=== PATIENT | male | born 1985 | race Caucasian/White ===

== ENCOUNTER → 2016-11-29 | Outpatient (CLI) | payer OTHER | LOC: FIMAGING 06:54 | PROVIDERS: ATTEND Family Medicine | DX: M51.34 Other intervertebral disc degeneration, thoracic region (principal); M51.14 Intervertebral disc disorders with radiculopathy, thoracic region ==

== ENCOUNTER 2016-12-14 08:27 | Emergency (ER) | payer OTHER ==
[2016-12-14 08:31] VITALS: RESP 16
[2016-12-14 08:46] LABS: COLOR YELLOW; LEUKOCYTE ESTERASE,URINE NEGATIVE (NEGATIVE); NITRITE,URINE NEGATIVE (NEGATIVE)
[2016-12-14] MEDS ORDERED: NS 1,000 ML IV ONE (08:50)
[2016-12-14] MEDS ORDERED: KETOROLAC 30 MG/1 ML SDV IVP ONE (08:50)
--- NOTE | 2016-12-14 08:50 | EDPHY ---
HPI/HX/ROS/PE/MDM Narrative: CHIEF COMPLAINT: Left flank pain, hematuria. HPI: The patient is a 31 year old male with a history of kidney stones who presents with left flank pain and hematuria for the past seven hours. The pain is constant and severe. He has had associated vomiting. He denies fever, trauma. His last kidney stone was last summer and he reports that it was never taken out or passed. REVIEW OF SYSTEMS: Aside from elements discussed in the HPI, a comprehensive 10-point review of systems was reviewed and is negative. PMH: Kidney stones. SOCIAL HISTORY: Lives in [place]. PHYSICAL EXAM: General: Patient is alert, in no acute distress. ENT: Eyes are normal to inspection. ENT inspection normal. Neck: Normal inspection. Full range of motion. Respiratory: No respiratory distress. Breath sounds normal bilaterally. Cardiovascular: Regular rate and rhythm. Strong peripheral pulses. Abdomen: The abdomen is nontender to palpation. There are no peritoneal signs. There are normal bowel sounds. Back: Normal to inspection. No tenderness to palpation. Skin: Normal color. No rash. Warm and dry. Extremities: Normal appearance. Full range of motion. Neuro: Oriented x3. Normal motor function. Normal sensory function. Portions of this note were transcribed by an ED scribe. I personally performed the history, physical exam, and medical decision making; and confirm the accuracy of the information in the transcribed note. ED Course: Urinalysis ordered. An IV was established and labs ordered. Abdomen/pelvis CT ordered. 1L IV saline administered for hydration along with 30mg IV Toradol for pain. Urine shows 50-182 RBCs and 10-15 WBCs. 0935: CT results conveyed to me by Dr. Diaz and show 3mm stone at the UVJ. Study: CT of the abdomen/pelvis. Indication: Pain, hematuria. Results: Mild to moderate left-sided hydronephrosis secondary to a small 3 x 2 x 3 mm left UVJ calculus. The study was read by the radiologist, Dr. Diaz. I viewed the images myself on the PACS system. - Data Points Laboratory Results: Laboratory Results 12/14/16 08:50 12/14/16 08:50 12/14/16 12/14/16 12/14/16 08:50 08:50 08:35 WBC 11.44 10^3/uL H 10^3/uL (3.80-9.50) RBC 5.48 10^6/uL 10^6/uL (4.40-6.38) Hgb 16.9 g/dL g/dL (13.7-17.5) Hct 48.3 % % (40.0-51.0) MCV 88.1 fL fL (81.5-99.8) MCH 30.8 pg pg (27.9-34.1) MCHC 35.0 g/dL g/dL (32.4-36.7) RDW 12.2 % % (11.5-15.2) Plt Count 257 10^3/uL 10^3/uL (150-400) MPV 9.4 fL fL (8.7-11.7) Neut % (Auto) 85.0 % H % (39.3-74.2) Lymph % (Auto) 9.4 % L % (15.0-45.0) [place] % (Auto) 4.5 % % (4.5-13.0) Eos % (Auto) 0.6 % % (0.6-7.6) Baso % (Auto) 0.3 % % (0.3-1.7) Nucleat RBC Rel Count 0.0 % % (0.0-0.2) Absolute Neuts (auto) 9.73 10^3/uL H 10^3/uL (1.70-6.50) Absolute Lymphs (auto) 1.07 10^3/uL 10^3/uL (1.00-3.00) Absolute Monos (auto) 0.52 10^3/uL 10^3/uL (0.30-0.80) Absolute Eos (auto) 0.07 10^3/uL 10^3/uL (0.03-0.40) Absolute Basos (auto) 0.03 10^3/uL 10^3/uL (0.02-0.10) Absolute Nucleated RBC 0.00 10^3/uL 10^3/uL (0-0.01) Immature Gran % 0.2 % % (0.0-1.1) Immature Gran # 0.02 10^3/uL 10^3/uL (0.00-0.10) Sodium 141 mEq/L mEq/L (134-144) Potassium 4.4 mEq/L mEq/L (3.5-5.2) Chloride 108 mEq/L mEq/L (97-110) Carbon Dioxide 24 mEq/l mEq/l (22-31) Anion Gap 9 mEq/L mEq/L (8-16) BUN 15 mg/dL mg/dL (7-23) Creatinine 1.0 mg/dL mg/dL (0.7-1.3) Estimated GFR > 60 Glucose 120 mg/dL H mg/dL (70-100) Calcium 9.8 mg/dL mg/dL (8.5-10.4) Urine Color YELLOW Urine Appearance HAZY Urine pH 6.0 (5.0-7.5) Ur Specific [place] 1.017 (1.002-1.030) Urine Protein 1+ H (NEGATIVE) Urine Ketones NEGATIVE (NEGATIVE) Urine Blood 3+ H (NEGATIVE) Urine Nitrate NEGATIVE (NEGATIVE) Urine Bilirubin NEGATIVE (NEGATIVE) Urine Urobilinogen NEGATIVE EU EU (0.2-1.0) Ur Leukocyte Esterase NEGATIVE (NEGATIVE) Urine RBC 50-182 /hpf H /hpf (0-3) Urine WBC 10-15 /hpf H /hpf (0-3) Ur Epithelial Cells NONE SEEN /lpf /lpf (NONE-1+) Urine Bacteria 1+ /hpf H /hpf (NONE SEEN) Urine Mucus TRACE /lpf /lpf (NONE-1+) Ur Culture Indicated? INDICATED H (NI) Urine Glucose NEGATIVE (NEGATIVE) Medications Given: Discontinued Medications Sodium Chloride (Ns) 1,000 mls @ 0 mls/hr IV ONCE ONE PRN Reason: Wide Open Stop: 12/14/16 08:51 Last Admin: 12/14/16 08:55 Dose: 1,000 mls Ketorolac Tromethamine (Toradol) 30 mg IVP EDNOW ONE Stop: 12/14/16 08:51 Last Admin: 12/14/16 09:00 Dose: 30 mg Ondansetron HCl (Zofran) 4 mg IVP EDNOW ONE Stop: 12/14/16 09:00 Last Admin: 12/14/16 09:00 Dose: 4 mg General Time Seen by Provider: 12/14/16 08:45 Initial Vital Signs: Initial Vital Signs Temperature (C) 36.6 C 12/14/16 08:28 Heart Rate 94 12/14/16 08:28 Respiratory Rate 16 12/14/16 08:28 Blood Pressure 128/96 H 12/14/16 08:28 O2 Sat (%) 95 12/14/16 08:28 O2 Delivery Mode Room Air Allergies/Adverse Reactions: diazepam [From Valium] Allergy (Intermediate, Verified 12/14/16 08:31) Makes me crazy Home Medications: Medication Instructions Recorded GABAPENTIN 400 mg PO 12/14/16 Departure - Departure Disposition: Home, Routine, Self-Care Clinical Impression: Kidney stone Condition: Good Instructions: Kidney Stones (ED) Additional Instructions: Follow up with Dr. Larose this week for reevaluation. Return to the Emergency Department for any serious worsening of condition. Referrals: Kallie Alvarado MD [Primary Care Provider] - As per Instructions Flynn Larose MD [Medical Doctor] - As per Instructions Report Scribed for: Alonzo Murphy Report Scribed by: Carlos Araujo Date of Report: 12/14/16 Time of Report: 08:50
[2016-12-14 08:53] LABS: BACTERIA 1+ /hpf (NONE SEEN); MUCUS TRACE /lpf (NONE-1+); RBC,URINE 50-182 /hpf (0-3)
[2016-12-14 08:58] LABS: % IMMATURE GRANULYOCYTES 0.2 % (0.0-1.1); ABSOLUTE IMMATURE GRANULOCYTES 0.02 10^3/uL (0.00-0.10); ADD DIFF? NO; ADD MORPH? NO; ADD SCAN? NO; ATYPICAL LYMPHOCYTE FLAG 10 (0-99); FRAGMENT RBC FLAG 0 (0-99); HEMATOCRIT 48.3 % (40.0-51.0); HEMOGLOBIN 16.9 g/dL (13.7-17.5); LEFT SHIFT FLG 0 (0-99); LIPEMIA HEMOLYSIS FLAG 90 (0-99); MEAN CELL HEMOGLOBIN 30.8 pg (27.9-34.1); MEAN CELL VOLUME 88.1 fL (81.5-99.8); MEAN PLATELET VOLUME 9.4 fL (8.7-11.7); PLATELET CLUMPS FLAG 0 (0-99); PLATELET COUNT 257 10^3/uL (150-400); RED BLOOD CELL COUNT 5.48 10^6/uL (4.40-6.38); RED CELL DISTRIBUTION WIDTH 12.2 % (11.5-15.2)
[2016-12-14] MEDS ORDERED: ONDANSETRON 4 MG/2 ML VIAL IVP ONE (08:59)
[2016-12-14 09:21] LABS: ANION GAP 9 mEq/L (8-16); CALCIUM 9.8 mg/dL (8.5-10.4); CARBON DIOXIDE 24 mEq/l (22-31); CHLORIDE 108 mEq/L (97-110); GLOMERULAR FILTRATION RATE > 60; GLUCOSE 120 mg/dL (70-100); POTASSIUM 4.4 mEq/L (3.5-5.2); SODIUM 141 mEq/L (134-144)
[2016-12-14] MEDS ORDERED: AZITHROMYCIN IV 500 MG in D5W 250 ML IV ONE (09:41)
[2016-12-14] MEDS ORDERED: predniSONE 20 MG TAB PO ONE (09:43)
[2016-12-14 10:26] VITALS: BP 120/67; PULSE 73; TEMP 98.8; O2SAT 93
== END 2016-12-14 10:25 | disposition home or self-care (01) ==
DX: N20.0 Calculus of kidney (principal)
CPT/HCPCS: 96374; J0456; J1885; J2405

== ENCOUNTER → 2017-06-01 | Outpatient (CLI) | payer OTHER | LOC: BMCIMAGING 14:52 | PROVIDERS: ATTEND Family Medicine | DX: M47.894 Other spondylosis, thoracic region (principal) ==

== ENCOUNTER 2017-06-11 14:36 | Emergency (ER) | payer OTHER ==
[2017-06-11 14:46] VITALS: TEMP 98.4
[2017-06-11] MEDS ORDERED: HYDROmorphONE/DILAUDID 1 MG/ML INJ IVP ONE ×2 (15:59→18:29)
[2017-06-11] MEDS ORDERED: NS 1,000 ML IV ONE (15:59)
[2017-06-11] MEDS ORDERED: DEXAMETHASONE 10 MG/ML VIAL ONE (16:01)
--- NOTE | 2017-06-11 16:03 | EDPHY ---
H & P Stated Complaint: Upper back pain, L arm tingling Time Seen by Provider: 06/11/17 15:44 HPI/ROS: CHIEF COMPLAINT: Back pain and arm paresthesias HISTORY OF PRESENT ILLNESS: The patient is a 32-year-old man comes to the emergency department complaining of pain between the shoulder blades as well as paresthesias in his left arm. He states that he has had the paresthesias in his arm for about 8 month's and was seen by a neurologist Dr. Ortiz in [place] and diagnosed with a brachial plexopathy by nerve conduction studies. He was 1st placed on a fentanyl patch which he did not tolerate and then was placed on Butrans patch which he did not refill because he does not want to be on narcotics. His symptoms seem to stabilize but has persistent pain and paresthesias in his left arm. His states that the numbness seems to be over a greater surface area than it had been initially and is now including his arm circumferentially and also his left sub axillary area . 1 month ago he was lifting up his 150 lb dog when he felt a pop in his thoracic spine and had significant pain. It seemed to resolve over a few weeks. Then 2 weeks ago he was helping his sister move when he had significant pain in the thoracic spine again. He went to the urgent care and was started on a Medrol Dosepak and OxyContin. His pain improved but returned when the steroids were gone. He saw his primary Dr. Davis who gave him another Medrol Dosepak and this time it did not work. He is here today because he is frustrated that there is not an answer and that the medication is no longer working. He states that he has some slight weakness in his left arm because he is no longer able to unscrew a oil filter. He traditionally had been able to do this. REVIEW OF SYSTEMS: Constitutional: denies: chills, fever, recent illness, recent injury EENTM: denies: blurred vision, double vision, nose congestion Respiratory: denies: cough, shortness of breath Cardiac: denies: chest pain, irregular heart rate, lightheadedness, palpitations Gastrointestinal/Abdominal: denies: abdominal pain, diarrhea, nausea, vomiting, blood streaked stools Genitourinary: denies: dysuria, frequency, hematuria, pain Musculoskeletal: See HPI Skin: denies: lesions, rash, jaundice, bruising Neurological: denies: headache, numbness, paresthesia, tingling, dizziness, weakness Hematologic/Lymphatic: denies: blood clots, easy bleeding, easy bruising Immunologic/allergic: denies: HIV/AIDS, transplant EXAM: GENERAL: Well-appearing, well-nourished and in no acute distress. HEAD: Atraumatic, normocephalic. EYES: Pupils equal round and reactive to light, extraocular movements intact, sclera anicteric, conjunctiva are normal. ENT: TMs normal, nares patent, oropharynx clear without exudates. Moist mucous membranes. NECK: Normal range of motion, supple without lymphadenopathy or JVD. LUNGS: Breath sounds clear to auscultation bilaterally and equal. No wheezes rales or rhonchi. HEART: Regular rate and rhythm without murmurs, rubs or gallops. ABDOMEN: Soft, nontender, normoactive bowel sounds. No guarding, no rebound. No masses appreciated. BACK: Pain and tenderness over T4/5. No swelling. No rash. No deformity. EXTREMITIES: Normal strength when tested and Normal range of motion, no pitting or edema. No clubbing or cyanosis. NEUROLOGICAL: Cranial nerves II through XII grossly intact. Normal speech, normal gait. 5/5 strength, normal movement in all extremities, normal sensation to light touch, normal reflexes PSYCH: Normal mood, normal affect. SKIN: Warm, dry, normal turgor, no visible rashes or lesions. Source: Patient Exam Limitations: No limitations - Personal History Current Tetanus/Diphtheria Vaccine: Yes Current Tetanus Diphtheria and Acellular Pertussis (TDAP): Yes - Medical/Surgical History Hx Asthma: No Hx Chronic Respiratory Disease: No Hx Diabetes: No Hx Cardiac Disease: No Hx Renal Disease: Yes Hx Cirrhosis: No Hx Alcoholism: No Hx HIV/AIDS: No Hx Splenectomy or Spleen Trauma: No Other PMH: kidney stones - Family History Significant Family History: No pertinent family hx - Social History Smoking Status: Never smoked Alcohol Use: Sober Drug Use: None Constitutional: Initial Vital Signs Temperature (C) 36.9 C 06/11/17 14:42 Heart Rate 93 06/11/17 14:42 Respiratory Rate 18 06/11/17 14:42 Blood Pressure 134/89 H 06/11/17 14:42 O2 Sat (%) 94 06/11/17 14:42 O2 Delivery Mode Room Air Allergies/Adverse Reactions: diazepam [From Valium] Allergy (Intermediate, Verified 12/14/16 08:31) Makes me crazy Home Medications: Medication Instructions Recorded oxyCODONE/APAP 5/325 [Percocet 1 - 2 tab PO Q4H PRN #10 tab 06/11/17 5/325 (*)] predniSONE 60 mg PO DAILY #15 tab 06/11/17 Medical Decision Making - Diagnostics Imaging Results: Imaging Impressions Cervical Spine MRI 06/11/17 15:58 Impression: 1. No acute findings in the cervical spine. 2. 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 Thoracic Spine MRI 06/11/17 15:58 Impression: 1. Mild compression fracture of the superior endplate of T7, new since November 29, 2016, without STIR hyperintensity, suggesting this is subacute/old. 2. Decreased conspicuity of a previously noted tiny disk protrusion at T8-T9. 3. Additional findings, as above. Findings discussed with Ren Solis M.D., on June 11, 2017 at 1844. Orbit X-Ray 06/11/17 16:32 Impression: No radiopaque foreign object identified in the orbits. E:NW/amm ED Course/Re-evaluation: The patient reported to the camera technician that he got a piece of metal in his eye 7 months ago. He thinks he got some dirt in his eye about a week ago but has not had any symptoms since. They would like to obtain a x-ray of his orbit to rule out metal foreign body prior to MRI. 6:55 p.m. we discussed the MRI results. The we discussed the old T7 fracture. The this may explain some of his thoracic bony pain. No sign of spinal cord injury or radiculopathy. The patient has been diagnosed with a brachial plexopathy followed by Neurology. He is requesting another dose of steroids and pain medication for this. I suggested he follow up with his neurologist. He understands and agrees with this plan. I will give him a short course of pain medication and tell him follow up with his neurologist. Differential Diagnosis: Partial list of the Differential diagnosis considered include but were not limited to; fracture, spinal cord injury, diskitis, radiculopathy, brachial plexopathy and although unlikely based on the history and physical exam, I also considered infection, cancer. I discussed these differential diagnoses and the plan with the patient as well as the usual and expected course. The patient understands that the diagnosis is provisional and that in medicine we are not always correct and that further workup is often warranted. Usual and customary warnings were given. All of the patient's questions were answered. The patient was instructed to return to the emergency department should the symptoms at all worsen or return, otherwise to followup with the physician as we discussed. - Data Points Medications Given: Discontinued Medications Dexamethasone (Decadron Injection) 10 mg IVP EDNOW ONE Stop: 06/11/17 16:12 Last Admin: 06/11/17 16:12 Dose: 10 mg Hydromorphone HCl (Dilaudid) 1 mg IVP EDNOW ONE Stop: 06/11/17 16:00 Last Admin: 06/11/17 16:09 Dose: 1 mg Hydromorphone HCl (Dilaudid) 1 mg IVP EDNOW ONE Stop: 06/11/17 18:30 Last Admin: 06/11/17 18:32 Dose: 1 mg Sodium Chloride (Ns) 1,000 mls @ 0 mls/hr IV EDNOW ONE; Wide Open PRN Reason: Protocol Stop: 06/11/17 16:00 Last Admin: 06/11/17 16:09 Dose: 1,000 mls Departure - Departure Disposition: Home, Routine, Self-Care Clinical Impression: Thoracic back pain Qualifiers: Chronicity: acute Back pain laterality: midline Qualified Code(s): M54.6 - Pain in thoracic spine Condition: Fair Instructions: Back Pain (ED) Referrals: Mey Weston MD [Primary Care Provider] - As per Instructions Prescriptions: oxyCODONE/APAP 5/325 [Percocet 5/325 (*)] 1 - 2 tab PO Q4H PRN #10 tab PRN Reason: Pain, Severe predniSONE 60 mg PO DAILY #15 tab
[2017-06-11] MEDS ORDERED: DEXAMETHASONE 10 MG/ML VIAL IVP ONE (16:11)
[2017-06-11 19:27] VITALS: BP 129/83; PULSE 80; RESP 16; O2SAT 95
== END 2017-06-11 19:29 | disposition home or self-care (01) ==
DX: M54.6 Pain in thoracic spine (principal)
CPT/HCPCS: 96374; J1100; J1170

== ENCOUNTER 2017-06-13 12:29 | Emergency (ER) | payer OTHER ==
[2017-06-13 12:33] VITALS: RESP 16; TEMP 98.8
--- NOTE | 2017-06-13 13:43 | EDPHY ---
H & P Stated Complaint: BACK PAIN, UNSURE HOW TO FOLLOW UP Time Seen by Provider: 06/13/17 12:50 HPI/ROS: CHIEF COMPLAINT: Midback pain HISTORY OF PRESENT ILLNESS: This is a generally healthy 32-year-old male who presents with ongoing midback pain, present possibly for the past few months. He has also had left arm paresthesias for the last 6-8 months. He was seen by a neurologist, Dr. Ortiz in [place], and diagnosed with brachial plexopathy by nerve conduction studies. He tried a fentanyl patch, a Butrans patch--both of which she discontinued because of side effects and desire to not be on narcotics. About a month ago he was lifting heavy dog and noticed some mid back pain at that time. He thinks there might have been a pop in his back also. This seemed to improve over a few weeks but then returned after he did some lifting again. He was seen at urgent care and treated with a Medrol Dosepak in OxyContin. Once the steroids were completed his pain returned. He then saw his primary care physician who treated him with a 2nd Medrol Dosepak which was not effective. He was seen in the emergency department on June 11. He had an MRI scan of the cervical and thoracic spine performed. There is a subacute/old T7 compression fracture noted. No spinal cord pathology or significant nerve root pathology. He does have degenerative disease. He is here today, frustrated because he is not certain how to proceed at this point in time. He was given a small amount of oxycodone on the 2nd but has taken all of these. They do help but he does not want to be on opiates persistently. He is also on prednisone and continues with this medication. His left arm numbness is essentially unchanged. He denies weakness. He has not had erectile dysfunction or bowel or bladder difficulties. REVIEW OF SYSTEMS: A ten point review of systems was performed and is negative with the exception of the items mentioned in the HPI. 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 He does not use tobacco or alcohol products. He is accompanied by his mother and his today. General Appearance: Alert. Vital signs reviewed. Blood pressure 143/87. Eyes: Pupils equal and round, no conjunctival injection, no discharge. Anicteric. ENT, Mouth: Mucous membranes are moist, no oropharyngeal erythema or edema Neck: Nontender over the cervical spine in the midline. Respiratory: Lungs are clear to auscultation; no wheezes, rales, or rhonchi. Cardiovascular: Regular rate and rhythm; no murmur, rub, or gallop. Gastrointestinal: Abdomen is soft and nontender, no masses or organomegaly, bowel sounds normal. Skin: Warm and dry, no rashes on exposed skin, normal color. Back: Tender but over the mid thoracic spine in the midline. No palpable deformity. No lumbar spine tenderness. No palpable muscle spasm. Extremities: No lower extremity edema, no calf tenderness or swelling. Neurological: Alert and oriented. Moving all four extremities easily and equally. Strength is 5 over 5 bilaterally with testing of all major motor groups. Sensation is intact to light touch with the exception of decreasing patient to light touch over the left lateral upper extremity. Deep tendon reflexes are 2+ in the biceps and knees bilaterally. Gait is normal. Psychiatric: Normal affect. - Personal History Current Tetanus Diphtheria and Acellular Pertussis (TDAP): Yes Tetanus Vaccine Date: < 10 YEARS - Medical/Surgical History Hx Asthma: No Hx Chronic Respiratory Disease: No Hx Diabetes: No Hx Cardiac Disease: No Hx Renal Disease: Yes Hx Cirrhosis: No Hx Alcoholism: No Hx HIV/AIDS: No Hx Splenectomy or Spleen Trauma: No Other PMH: kidney stones, FX T7 - Social History Smoking Status: Never smoked Constitutional: Initial Vital Signs Temperature (C) 37.1 C 06/13/17 12:30 Heart Rate 88 06/13/17 12:30 Respiratory Rate 16 06/13/17 12:30 Blood Pressure 143/87 H 06/13/17 12:30 O2 Sat (%) 96 06/13/17 12:30 O2 Delivery Mode Room Air Allergies/Adverse Reactions: diazepam [From Valium] Allergy (Intermediate, Verified 06/13/17 12:34) Makes me crazy Home Medications: Medication Instructions Recorded predniSONE 60 mg PO DAILY #15 tab 06/11/17 Lidocaine 5% [Lidoderm 5% Patch 1 ea TD DAILY #10 patch 06/13/17 (*)] oxyCODONE/APAP 5/325 [Percocet 1 - 2 tab PO Q4H PRN #10 tab 06/13/17 5/325 (RX)] Medical Decision Making ED Course/Re-evaluation: I reviewed the patient's emergency department note from June 11 and also his MRI reports. I spoke with Dr. [place] Rivers who recommends an office appointment for consideration of kyphoplasty. We discussed bracing, unlikely to be helpful within injury at this level. The patient has been referred to a musculoskeletal neurologist in [place] but has not yet been able to schedule that appointment. An MRI scan of the shoulder is been requested prior to that appointment. His primary care physician is helping to arrange both of these. I recommend that he call his primary care physician tomorrow to check on these arrangements. I also recommend that he schedule an appointment with Dr. Rivers. He has been referred to [facility] [place] in addition. He is being given a prescription for lidocaine 5% patches and a prescription for Percocet, dispense 10. He understands that he will not be able to receive additional opiate pain medications from the emergency department. Differential Diagnosis: Back pain including but not limited to muscular pain, herniated disc, spine fracture, intra-abdominal causes and urinary tract infection. Departure - Departure Disposition: Home, Routine, Self-Care Clinical Impression: Thoracic back pain Qualifiers: Chronicity: chronic Back pain laterality: midline Qualified Code(s): M54.6 - Pain in thoracic spine Thoracic compression fracture Qualifiers: Encounter type: initial encounter Fracture type: closed Qualified Code(s): S22.000A - Wedge compression fracture of unspecified thoracic vertebra, initial encounter for closed fracture Condition: Good Instructions: Vertebral Compression Fracture (ED), Back Pain (ED) Additional Instructions: Use the lidocaine patches as prescribed. Use the Percocet if needed for severe pain, hopefully will only need this at night for sleep. Continue the prednisone. After that it is okay few want to use ibuprofen or Aleve again. I recommend that you contact Dr. Weston's office tomorrow and ask about the MRI scan that is being scheduled. You should also obtain the name of the neurologist in [place] that you will be seeing and try to schedule an appointment there. Also call Dr. Rivers's office, Neurosurgery, and arrange an appointment with him or one of his partners. In addition, you should call [facility] and set up an appointment there. As we discussed I recommend that you keep these appointments as needed. When you are speaking with the appointment desk tell them that you have a subacute 7th thoracic vertebral compression fracture and ongoing pain. Also let them know that you have been diagnosed with a left arm brachialplexy. Referrals: Mey Weston MD [place] [place] - As per Instructions Tiffany Rivers MD [Medical Doctor] - As per Instructions [facility] [Outside] - As per Instructions Stand Alone Forms: Narcotic Guidelines Prescriptions: Lidocaine 5% [Lidoderm 5% Patch (*)] 1 ea TD DAILY #10 patch oxyCODONE/APAP 5/325 [Percocet 5/325 (RX)] 1 - 2 tab PO Q4H PRN #10 tab PRN Reason: Pain, Severe
[2017-06-13 14:05] VITALS: BP 136/91; PULSE 76; O2SAT 95
== END 2017-06-13 14:05 | disposition home or self-care (01) ==
DX: M54.6 Pain in thoracic spine (principal); S22.000D Wedge compression fracture of unspecified thoracic vertebra, subsequent encounter for fracture with routine healing; X50.0XXD Overexertion from strenuous movement or load, subsequent encounter